=== PATIENT | female | born 1995 | race African-American/Black ===

== ENCOUNTER 2017-09-13 23:44 | Emergency (ER) | payer SELFPAY ==
[2017-09-14 00:04] LABS: AUTOMATED NEUTROPHIL # 5.1 TH/MM3 (1.8-7.7); BASOPHIL % 0.5 % (0.0-2.0); EOSINOPHIL # 0.1 TH/MM3 (0-0.4); EOSINOPHIL % 0.6 % (0.0-4.0); HEMATOCRIT 34.6 % (35.0-46.0); HEMO FLAGS DIFF FINAL; LYMPHOCYTE # 2.6 TH/MM3 (1.0-4.8); MEAN CELL VOLUME 66.9 FL (80.0-100.0); MEAN CORPUSCULAR HEMOGLOBIN 20.6 PG (27.0-34.0); MEAN CORPUSCULAR HGB CONC 30.8 % (32.0-36.0); MONO % 8.9 % (0.0-8.0); PLATELET COUNT 281 TH/MM3 (150-450); RED BLOOD COUNT 5.18 MIL/MM3 (4.00-5.30); RED CELL DISTRIBUTION WIDTH 17.8 % (11.6-17.2); WHITE BLOOD COUNT 8.6 TH/MM3 (4.0-11.0)
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
[2017-09-14] MEDS ORDERED: IOHEXOL 350 MG/ML 10 ML VIAL (for RAD DIAG) IVCONTRAST ONE (00:10)
[2017-09-14 00:13] LABS: I-STAT POTASSIUM 3.8 MMOL/L (3.5-4.9)
[2017-09-14 00:14] LABS: PROTHROMBIN TIME - PATIENT 11.2 SEC (9.8-11.6)
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
[2017-09-14] MEDS ORDERED: ACETAMINOPHEN 325 MG TAB PO ONE (01:30)
== END 2017-09-14 02:22 | disposition home or self-care (01) ==
LOC: NEPI 23:44 → EDBD 23:44 → NEPE 09-14 02:22
DX: F10.129 Alcohol abuse with intoxication, unspecified (principal); R51 Headache; V48.5XXA Car driver injured in noncollision transport accident in traffic accident, initial encounter
CPT/HCPCS: 70450; 71260; 72125; 74177; 80307; 82435; 82565; 82947; 84132; 84295; 84520; 85025; 85610; 85730; 86850; 86900; 86901; 99285; 99291; Q9967; G0390